=== PATIENT | female | born 1990 | race Caucasian/White ===

== ENCOUNTER 2016-05-14 18:15 | Emergency (ER) | payer OTHER ==
[~2016-05-14] VITALS: Ht 157.5 cm; Wt 75.0 kg
[~2016-05-14 18:15] MED LIST: ASCO500T8 PO; Docusate Sodium PO; FERR-74 PO; FLUO10CA20 PO; Ibuprofen PO; Oxycodone/Acetaminophen PO; PREN-107 PO
[2016-05-14 18:19] VITALS: BP 130/79; PULSE 77; RESP 15; O2SAT 98
[2016-05-14 19:01] LABS: BASOPHILS % (AUTO) 0.4 % (0-3); EOSINOPHILS % (AUTO) 1.8 % (0-5); MONOCYTES % (AUTO) 9.8 % (4-12); Mean Corpuscular Hemoglobin 30.6 pg (27.0-35.0); Mean Corpuscular Volume 89.4 fL (81-100); NEUTROPHILS % (AUTO) 60.4 % (40-74); Platelet Count 265 bil/L (150-400)
[2016-05-14 19:27] LABS: Magnesium 1.9 mg/dL (1.6-2.6)
[2016-05-14 19:42] LABS: APPEARANCE,URINE CLEAR (CLEAR,HAZY); COLOR,URINE YELLOW (YELLOW); OCCULT BLOOD,URINE NEGATIVE (NEGATIVE); PH,URINE 6.5 (5.0-8.0); UROBILINOGEN,URINE NORMAL (NORMAL)
--- NOTE | 2016-05-14 20:52 | ED.REPORT ---
HPI-Abd Pain F Under 39 Date of Service May 14, 2016 ED Provider: Dr. Walter Mazariegos M.D. A 25 year old female with a history of 2nd degree perineal laceration, depression, and menorrhagia not due to a bleeding diathesis presents to the ED with LUQ abdominal pain onset one month ago. The pain has slowly spread across her abdomen. The patient also reports nausea and decreased appetite. She denies vomiting, constipation, diarrhea, melena, hematochezia, cough, fever, vaginal discharge, or dysuria. The patient also denies prior abdominal surgeries. She has a Mirena IUD and irregular periods. Nursing Notes Stated Complaint: ABDOMINAL PAIN/WEAKNESS Chief Complaint: Female Abdominal Pain Nursing Notes Reviewed: Yes Allergies: Coded Allergies: No Known Drug Allergies (Verified Allergy, Unknown, 05/14/16) Scheduled Ascorbic Acid (Vitamin C) 500 Mg Tablet 500 MG PO BIDWM Cephalexin (Keflex) 500 Mg Capsule 500 MG PO TID Ferrous Sulfate (Feosol) 325 Mg Tablet 325 MG PO BIDWM Fluoxetine (Fluoxetine) 10 Mg Capsule 10 MG PO DAILY Omeprazole (Omeprazole) 10 Mg Capsule.dr 10 MG PO DAILY Vit37/Iron/Folic Acid ([place]ata Chewable Tablet) 1 Each Tab.chew 1 EACH PO DAILY Scheduled PRN ([Docusate Sodium]) 100 MG CAPSULE 100 MG PO BID PRN PRN For Constipation ([Ibuprofen]) 800 MG TABLET 800 MG PO Q6H PRN PRN For Pain ([Oxycodone/Acetaminophen]) 1 TAB TABLET 1-2 TAB PO Q4H PRN PRN For Pain Ondansetron (Ondansetron) 8 Mg Tablet 8 MG PO QID PRN PRN For Nausea General Time Seen by MD: 20:52 Chief Complaint Abdominal pain Hx Obtained From: Patient Arrived By: Walk-in Sudden in Onset?: No Onset Occurred: More than a week ago... (1 month) Symptom Duration: Since onset Progression since Onset: Gradually worsening Location: : Diffuse: LUQ Quality: Painful Severity: Current: Moderate Severity: Maximum: Moderate Associated with: Reports: Nausea, Denies: Constipation, Diarrhea, Dysuria, Fever, Hematochezia, Vaginal discharge, Vomiting Sexual History / Control: Reports IUD Pertinent Negative: Relieved by nothing Context Related History: Denies: Abdominal surgery Recent Healthcare: No recent doctor visit Past Medical History Past Medical History w/ 2nd degree perineal laceration Depression Menorrhagia not due to a bleeding diathesis Past Surgical History Right wrist surgery 1999 Smoking History Never Smoker Social History Other Social History: Lives with children Ambulatory Status Independent Review of Systems Review of Systems Note: + Decreased appetite Constitutional: Denies: Fever Respiratory: Denies: Non-productive cough GI: Reports: Abdominal pain (LUQ to diffuse), Nausea, Denies: Constipation, Diarrhea, Hematochezia, Melena, Vomiting Female: Denies: Dysuria, Vaginal discharge Complete sys rev & neg: except as marked. Physical Exam Initial Vital Signs Vital Signs (First) Date Time Temp Pulse Resp B/P Pulse Ox O2 Delivery O2 Flow Rate FiO2 05/14/16 18:19 36.8 77 15 130/79 98 Initial VS: Reviewed Head / Eyes: Atraumatic, Normocephalic ENT: Conjunctiva normal, No scleral icterus Skin: Warm, Dry, No cyanosis Neurologic: Alert, Oriented, Nonfocal Psychiatric: Mood/affect normal, Behavior normal, Normal thought content General/Constitutional: Awake, Alert, No acute distress Respiratory / Chest: Breath sounds NL, Breath sounds = bilat, No respiratory distress Cardiovascular: Heart rate NL, Regular rhythm, Heart sounds NL Abdomen: Soft, Non-tender Interpretation & Diagnostics URINE TEST: Negative URINE DIPSTICK: 1.010 sp gravity 6 pH Normal Glucose Normal Urobilinogen Otherwise Negative Lab Results Interpretation Result Diagram: 05/14/162 05/14/16 1852 Test 05/14/16 18:10 05/14/16 18:52 Urine Color Yellow (YELLOW) Urine Appearance Clear (CLEAR,HAZY) Urine pH 6.5 (5.0-8.0) Urine Specific [place] 1.013 (1.003-1.035) Urine Protein Negativemg/dL (NEG,TRACE) Urine Glucose (UA) Negativemg/dL (NEGATIVE) Urine Ketones Negativemg/dL (NEGATIVE) Urine Occult Blood Negative (NEGATIVE) Urine Nitrite Negative (NEGATIVE) Urine Bilirubin Negative (NEGATIVE) Urine Urobilinogen Normalmg/dL (NORMAL) Urine Leukocyte Esterase Trace (NEGATIVE) Urine RBC 0-2/hpf (0-2) Urine WBC 6-10/hpf (0-5) Urine Epithelial Cells Many/hpf (NONE-MOD) Urine Crystals None seen (NONE SEEN) Urine Bacteria Few/hpf (NONE-FEW) Urine Hyaline Casts None/lpf (NONE) Urine Granular Casts None seen (NONE SEEN) Urine Waxy Casts None seen (NONE SEEN) Urine Red Blood Cell Casts None seen (NONE SEEN) Urine White Blood Cell Casts None seen (NONE SEEN) Urine Mucus None seen (None Seen) Urine Trichomonas None seen (NONE SEEN) Urine Yeast None (NONE SEEN) Urinalysis Comment None Urine Culture Reflexed Indicated White Blood Count 8.5th/mm3 (3.8-10.1) Red Blood Count 4.81mil/mm3 (3.90-5.20) Hemoglobin 14.7g/dL (12.0-15.6) Hematocrit 43.0% (35.0-46.0) Mean Corpuscular Volume 89.4fL (81-100) Mean Corpuscular Hemoglobin 30.6pg (27.0-35.0) Mean Corpuscular Hemoglobin Concent 34.2% (32.0-37.0) Red Cell Distribution Width 12.6% (12.3-15.4) Platelet Count 265bil/L (150-400) Neutrophils (%) (Auto) 60.4% (40-74) Lymphocytes (%) (Auto) 27.4% (14-46) Monocytes (%) (Auto) 9.8% (4-12) Eosinophils (%) (Auto) 1.8% (0-5) Basophils (%) (Auto) 0.4% (0-3) Sodium Level 138mEq/L (134-144) Potassium Level 4.1mEq/L (3.5-5.2) Chloride Level 101mEq/L (97-108) Carbon Dioxide Level 27mmol/L (18-29) Blood Urea Nitrogen 8mg/dL (6-20) Creatinine 0.75mg/dL (0.57-1.00) Estimat Glomerular Filtration Rate 134mL/min (>59) Glucose Level 94mg/dL (60-99) Calcium Level 9.1mg/dL (8.5-10.1) Magnesium Level 1.9mg/dL (1.6-2.6) Total Bilirubin 0.4mg/dL (0.0-1.2) Aspartate Amino Transf (AST/SGOT) 15U/L (0-50) Alanine Aminotransferase (ALT/SGPT) 7U/L (0-32) Alkaline Phosphatase 60U/L (25-150) Total Protein 7.1g/dL (6.4-8.4) Albumin 4.5g/dL (3.4-5.0) Lipase 41U/L (13-60) Hold Lyle Top Tube Received (Received) X-Ray Abdominal Interpretation Abdomen AP One View: Large amount of stool present Interpretation / Wet Read by: Wet read ED physician Re-Eval/Medical Decision Med Decision/Clinical Course Med Decision/Clinical Course: 25-year-old presents with left upper quadrant abdominal pain and no other significant findings. Some possibility of gastritis with current meds. Empiric Omeprazole for the next 2-4 weeks She does have a urinary tract infection by microscopic with 6-10 white cells per field. We will treat that with Keflex. Finally, she does have x-ray evidence of some prominent stool all throughout the colon. A moderate clean out would be a reasonable effort and she was begun with milk of magnesia and instructions for nightly use for three nights. Discharge now in stable condition. Source of Hx: Old records Re-Evaluation/Progress : Time of Eval: 22:19 Patient Status: Condition improved Re-Evaluation/Progress Note: Discussed with patient x-ray and lab results, diagnosis, and plan for discharge. Follow-up and return to the ER instructions given. Patient agrees with plan for care and all questions were addressed. Counseled Regarding: Diagnosis, Lab results, Need for follow-up, When/why to return to ED Discharge & Departure Shift Change Sign-Out Response to Therapy: Improved Primary Impression: Abdominal pain Abdominal location: left upper quadrant Qualified Code: R10.12 - Left upper quadrant pain Additional Impressions: UTI (urinary tract infection) Urinary tract infection type: acute cystitis Hematuria presence: without hematuria Qualified Code: N30.00 - Acute cystitis without hematuria Constipation Constipation type: unspecified constipation type Qualified Code: K59.00 - Constipation, unspecified Disposition: Home Discharge Condition All VS Reviewed: Yes Condition: Improved Patient Instructions: Acute Abdominal Pain (ED), Acute Nausea and Vomiting (ED) , Constipation (ED) Additional Instructions: Begin milk of magnesia 2 tablespoons nightly for three nights. Drink plenty of fluids and stay well-hydrate. Begin Metamucil 1 tablespoon twice daily for the indefinite future. Zofran up to four times daily if needed for nausea. Omeprazole daily for the next thirty days. Keflex three times daily for five days for urinary tract infection. Follow-up with your doctor in the office. Return if any immediate problems before then. Referrals: Deneen Jean (PCP) Allie Attestation Portions of this note were transcribed by Elzbieta Murphy. I, Dr. Mazariegos, personally performed the history, physical exam, and medical decision-making; I reviewed and confirmed the accuracy of the information in the transcribed note. Signed by: Allie Noyola, 05/15/2016, 01:30 copies to: Deneen Jean Christopher W MD May 14, 2016 20:52 ELZBIETA MURPHY May 14, 2016 21:44
[2016-05-14] MEDS ORDERED: Magnesium Hydroxide 10 mL Oral Concentration PO ONE (22:20)
[2016-05-14] MEDS ORDERED: CEPH-512 PO (22:25)
[2016-05-14] MEDS ORDERED: OMEP10CA4 PO (22:25)
[2016-05-14] MEDS ORDERED: ONDA-54 PO (22:25)
[2016-05-14 22:36] VITALS: PULSE 77; RESP 15; O2SAT 98
--- NOTE | 2016-05-15 09:17 | DRSVH ---
PROCEDURE: X-RAY ABDOMEN, ONE VIEW ([id number]) INDICATIONS: left upper quadrant pain TECHNIQUE: One view of the abdomen acquired. COMPARISON: MARLEN Prado, ABDOMEN-1 VIEW/KUB, 05/09/2016, 10:17. FINDINGS: Surgical changes and devices: Intrauterine device present. Bowel: Moderate colonic stool otherwise bowel gas pattern is normal. Soft tissues: No suspicious abdominal calcifications. Visualized solid organ contours appear normal in size. Bones: No suspicious bony lesions. IMPRESSION: Moderate amount of colonic stool present. Dictated by: Walter ROONEY Interpreted: Malorie Roberts MD on 05/15/2016 at 9:15 Transcribed by: OFELIA on 05/15/2016 at 9:16 Approved by: Malorie Roberts M.D. on 05/15/2016 at 17:21
== END 2016-05-14 22:37 | disposition home or self-care (01) ==
LOC: SED 18:15
DX: R10.12 Left upper quadrant pain (principal); N30.00 Acute cystitis without hematuria; K59.00 Constipation, unspecified; R11.0 Nausea; R63.0 Anorexia